=== PATIENT | female | born 1965 | race Caucasian/White ===

== ENCOUNTER 2023-03-27 11:00 | Observation (INO) ==
--- NOTE | 2023-03-27 11:18 | Emergency Department Note ---
Impression & Plan Syncope, Chest pain ED Provider Note NAME: YANNA LEO AGE: 57 SEX: F : 1965 ARRIVES VIA: Walk-In INFORMANT: Patient, ED PROVIDER(S): Davi Lynch MD CHIEF COMPLAINT: Outpatient referral, "blackouts" MEDICAL DECISION MAKING: Patient presents due to concern for syncope. IV was established blood work was obtained. EKG without signs of obvious arrhythmia. Patient has a normal white count mild elevation hemoglobin is 16.1 with a normal platelet count. Kidney function unremarkable with. No azotemia. Electrolytes are grossly unremarkable with negative troponin. I did speak the on-call hospitalist given the patient's reported multiple episodes of syncope daily for the last 3 weeks as well as ongoing chronicity. Patient will be admitted to the medicine service. Discussion w/ other healthcare providers: Dr. Torres inpatient medicine service Prior /Outside records reviewed: I did review a primary care visit from Kayla Garcia [employer] was seen due to concern for syncope palpitations. Patient was referred here for further evaluation and treatment given the frequency of her syncopal events. Differential diagnosis: Vasovagal event, dehydration, infection, hypoglycemia, electrolyte abnormalities, arrhythmia, pulmonary embolism, seizure among others were considered. Diagnostics, as interpreted by me: ECG: Normal sinus rhythm, rate of 63, normal intervals, normal axis ST elevations. No T WI. Cardiac monitoring: An order was placed for continuous cardiac monitoring. The monitor shows a rate of 65 with sinus rhythm. Patient was placed on pulse oximetry Medical decision rules: None Imaging studies: I informally interpreted the patient's chest x-ray which does not show obvious pneumonia or pneumothorax with formal report to follow. HPI: Patient presents as an outpatient referral due to concern for episodes of blacking out. When discussing the patient does not have memory loss but has syncope. This been ongoing for over a year but seems to be more persistent symptoms will happen up to 2 times daily. Patient denies any shortness of breath but has had some right-sided chest discomfort nonradiating. No exertional symptoms no prior history of any heart or lung disease patient states that it may be present in her family. No alcohol or tobacco use. Patient denies any leg swelling or calf pain no history of DVT or PE. No recent surgeries procedures or hospitalizations. Patient is currently on steroids for history of disc disease. PAST MEDICAL HISTORY: See Below PAST SURGICAL HISTORY: See Below SOCIAL HISTORY: See Below HOME MEDICATIONS: See Below ALLERGIES: See Below VITALS: See Below PHYSICAL EXAMINATION: GENERAL: NAD, non-toxic. EYE EXAM: Normal conjunctiva. PERRL, no anisocoria and EOM's grossly intact w/o pain. OROPHARYNX: Moist mucus membranes, grossly normal dentition. NECK: Supple, no nuchal rigidity, no adenopathy, non-tender. No signs of meningismus. FROM of the neck with good chin to chest and neck extension. No stridor. LUNGS: Clear to auscultation. Normal chest wall mechanics. HEART: NSR, no MRG. ABDOMEN: Abdomen soft, non-tender, no masses, no rebound or guarding. BACK: No CVA TTP. SKIN: No rashes and no bruising. UPPER EXTREMITIES: Upper extremities are grossly normal. LOWER EXTREMITIES: Grossly normal, no edema. NEURO EXAM: A&O x3, cranial nerves II-XII grossly intact, normal speech, moves all 4 extremities. Past Med/Surg History Medical History Lumbar pain No significant past medical history Cellulitis of left hand Dehydration Surgical History S/P tubal ligation essure in 2014 H/O shoulder surgery H/O wisdom tooth extraction Family History Other Myocardial infarction Stroke Denies family history of Breast cancer Colorectal cancer Social History Smoking Status: Current every day smoker Tobacco Type: Cigarettes Second Hand Exposure: Yes; Do You Dip or Chew Tobacco: No; Hx Alcohol Use: No Hx Substance Use: No Preferred Language: Haitian Communication Ability: Effective Material Scheduler Required: No Beliefs That Will Affect Care: None marital status: Current Living Situation: Spouse current occupational status: employed and unemployed 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 [employer] How many Children do You have: 4 Feels Safe at Home: Yes Assistive Devices: None Allergies Allergies Allergy/AdvReac Type Severity Reaction Status Date / Time aspirin Allergy Intermediate Rash Verified 03/27/23 10:03 Penicillins Allergy Intermediate rash Verified 03/27/23 10:03 clindamycin AdvReac Intermediate FELT LIKE Verified 03/27/23 10:03 HEART WAS POUNDING OUT OF CHEST doxycycline AdvReac Intermediate Vomiting Verified 03/27/23 10:03 Home Meds Home Medications Medication Instructions Recorded Confirmed oxybutynin chloride 5 mg 5 mg PO QAM 03/27/23 03/27/23 tablet,extended release 24 hr Previous Rx's Medication Instructions Recorded methylprednisolone 4 mg tablets in See Rx Instructions .Route 09/28/22 a dose pack (Medrol (Dheeraj)) .COMPLEX #21 ea citalopram 20 mg tablet 20 mg PO QAM #30 tabs 11/02/22 acetaminophen 325 mg tablet 650 mg (2 x 325 mg) PO TID #120 03/28/23 tabs pantoprazole 40 mg tablet,delayed 40 mg PO DAILY 4 weeks #28 tabs 03/28/23 release sucralfate 1 gram tablet 1 g PO ACHS 4 weeks #28 tabs 03/28/23 Results & Data (ED) Vital Signs Vital Signs - 24 hr 03/27/23 11:06 03/27/23 11:23 Temperature 36.9 C Temperature Source Temporal Artery Scan Pulse Rate 66 60 Respiratory Rate 20 Respiratory Effort / Characteristics Non-Labored Respiratory Depth Normal Blood Pressure 125/79 Blood Pressure Mean 94 Pulse Oximetry 96 Oxygen Delivery Method Room Air Sepsis Recent Fever Within 48 Hours No Sepsis New/Unexplained Change in Mental Status No Sepsis Action Taken by Nursing No Action Required Home Medications Current Medication List: was personally reviewed by me Laboratory Data Attestation: I reviewed the patient's lab results. 03/28/23 05:44 03/28/23 05:44 Lab Results 03/27/23 03/27/23 Range/Units 11:20 11:27 WBC 10.36 (4.8-10.8) K/ul RBC 5.15 (4.20-5.40) M/uL Hgb 16.1 H (12.0-16.0) g/dl Hct 47.9 H (37.0-47.0) % MCV 93.0 (80.0-100.0) fL MCH 31.3 (25.0-34.0) pg MCHC 33.6 (32.0-36.0) g/dL RDW Std Deviation 44.5 (36.4-46.3) fL RDW Coeff of Lindy 13.0 (11.5-14.5) % Plt Count 317 (130-400) K/uL MPV 8.9 L (9.4-12.4) fL Immature Gran % (Auto) 0.4 % Neut % (Auto) 64.1 % Lymph % (Auto) 29.2 % [place] % (Auto) 5.4 % Eos % (Auto) 0.5 % Baso % (Auto) 0.4 % Neut # (Auto) 6.65 H (1.40-6.50) K/uL Lymph # (Auto) 3.02 (1.20-3.40) K/uL [place] # (Auto) 0.56 (0.11-0.59) K/uL Eos # (Auto) 0.05 (0.00-0.50) K/uL Baso # (Auto) 0.04 (0.00-0.20) K/uL Immature Gran # (Auto) 0.04 (0.01-0.20) K/uL Sodium 138 (136-145) mmol/L Potassium 4.2 (3.5-5.1) mmol/L Chloride 104 (98-107) mmol/L Carbon Dioxide 28 (21-32) mmol/L Anion Gap 6 (3-11) BUN 16 (6-23) mg/dl Creatinine 0.73 (0.6-1.2) mg/dl Est Cr Clr Drug Dosing 82.7 ml/min Est GFR ( Amer) 105.2 ml/min Est GFR (Non-Af Amer) 90.8 ml/min BUN/Creatinine Ratio 21.9 H (10-20) Glucose 85 (70-99(Fasting)) mg/dl Calcium 10.2 (8.6-10.3) mg/dl Magnesium 2.3 (1.7-2.4) mg/dl Total Bilirubin 0.4 (0.2-1.0) mg/dl AST 12 L (13-39) U/L ALT 13 (7-52) U/L Alkaline Phosphatase 96 (34-104) U/L Troponin I High Sens < 2.3 (0-14) pg/ml Total Protein 7.6 (6.0-8.3) gm/dl Albumin 4.7 (3.4-5.0) gm/dl Globulin 2.9 (2.5-4.0) gm/dl Albumin/Globulin Ratio 1.6 (0.9-2) Lipase 28 (11-82) U/L TSH 0.925 (0.300-4.500) uIu/ml Salicylates < 3.0 L (3.0-30) mg/dl Acetaminophen < 3 L (10-30) ug/ml Ethyl Alcohol mg/dL < 10.0 (<10.0) mg/dl Lyme Disease IgG Ab Negative (Negative) Lyme Disease IgM Ab Negative (Negative) Administered Medications Citalopram Hydrobromide (Citalopram 20 Mg Tab) 20 mg PO [facility] Stop: 04/27/23 08:59 Last Admin: 03/28/23 09:44 Dose: 20 mg Documented By: TLM Miscellaneous (Remove Nicoderm Patch) 1 each N/A DAILY@0859 [facility] Stop: 04/27/23 08:58 Last Admin: 03/28/23 10:42 Dose: Not Given Documented By: TLLorna Nicotine (Nicotine 21 Mg/24 Hr Tdsy) 21 mg TD [facility] Stop: 04/26/23 16:59 Last Admin: 03/28/23 09:44 Dose: 21 mg Documented By: Admin: 03/27/23 18:16 Dose: 21 mg Documented By: QGV Oxybutynin Chloride (Oxybutynin Chloride Xl 5 Mg Tabcr) 5 mg PO [facility] Stop: 04/27/23 08:59 Last Admin: 03/28/23 09:44 Dose: 5 mg Documented By: TLM Discontinued Medications Nicotine Polacrilex (Nicotine Polacrilex 2 Mg Gum) [address] [facility] Stop: 03/27/23 16:39 Last Admin: 03/27/23 16:53 Dose: 1 piece Documented By: QGV Imaging Data Radiologist's Impression: Chest X-Ray 03/27/23 11:18 XR chest 1V portable HISTORY: Chest pain, nonspecific COMPARISON: Chest 09/16/2022. FINDINGS: No pneumothorax. No pleural effusions. The heart is normal in size. No evidence for pulmonary edema. No new focal lung consolidations to suggest a pneumonia. No evidence for edema. No acute fractures identified. Stable calcified granuloma within the right lower lobe. IMPRESSION: No significant change compared to the prior study. No acute process. ACT 112: Negative or not required by law. Electronically signed by: Manjinder Vila M.D. 03/27/2023 12:30 PM Discharge Plan Visit Data Chief Complaint: Referred by Doctor Stated Complaint: DRLester SENT OVER FOR CARDIAC ASSESSMENT ED Provider: Davi Lynch Discharge Problem: Syncope, Chest pain Patient Disposition: Admitted As Inpatient Discharge Instructions Interventions: ED Discharge Assessment Last Done: 03/27/23 21:54 Discharge Problem: Syncope Qualifiers: Syncope type: unspecified Qualified Code(s): R55 - Syncope and collapse Chest pain Qualifiers: Chest pain type: unspecified Qualified Code(s): R07.9 - Chest pain, unspecified
[2023-03-27 11:42] LABS: Basophils # (auto) 0.04 K/uL (0.00-0.20); Basophils % (auto) 0.4 %; Eosinophils # (auto) 0.05 K/uL (0.00-0.50); Eosinophils % (auto) 0.5 %; Hematocrit (blood only) 47.9 % (37.0-47.0); Hemoglobin 16.1 g/dl (12.0-16.0); Immature Granulocytes # (auto) 0.04 K/uL (0.01-0.20); Immature Granulocytes % (auto) 0.4 %; Lymphocytes # (auto) 3.02 K/uL (1.20-3.40); Lymphocytes % (auto) 29.2 %; Mean Corpuscular Hemoglobin 31.3 pg (25.0-34.0); Mean Corpuscular Hgb Conc 33.6 g/dL (32.0-36.0); Mean Platelet Volume 8.9 fL (9.4-12.4); Monocytes # (auto) 0.56 K/uL (0.11-0.59); Monocytes % (auto) 5.4 %; Neutrophils # (auto) 6.65 K/uL (1.40-6.50); Neutrophils % (auto) 64.1 %; Platelet Count 317 K/uL (130-400); RDW Standard Deviation 44.5 fL (36.4-46.3); Red Blood Count 5.15 M/uL (4.20-5.40); White Blood Count 10.36 K/ul (4.8-10.8)
[2023-03-27 11:58] LABS: Acetaminophen < 3 ug/ml (10-30); Salicylate < 3.0 mg/dl (3.0-30)
[2023-03-27 11:59] LABS: Alanine Aminotransferase 13 U/L (7-52); Albumin Globulin Ratio 1.6 (0.9-2); Albumin Level 4.7 gm/dl (3.4-5.0); Alkaline Phosphatase 96 U/L (34-104); Anion Gap 6 (3-11); Aspartate Aminotransferase 12 U/L (13-39); BUN Creatinine Ratio 21.9 (10-20); Bilirubin,Total 0.4 mg/dl (0.2-1.0); Blood Urea Nitrogen 16 mg/dl (6-23); Calcium 10.2 mg/dl (8.6-10.3); Carbon Dioxide 28 mmol/L (21-32); Chloride 104 mmol/L (98-107); Creatinine Clr Calc Pharmacy 82.7 ml/min; Est GFR (African American) 105.2 ml/min; Est GFR (Non-African American) 90.8 ml/min; Globulin 2.9 gm/dl (2.5-4.0); Glucose 85 mg/dl (70-99(Fasting)); Lipase 28 U/L (11-82); Potassium 4.2 mmol/L (3.5-5.1); Sodium 138 mmol/L (136-145); Total Protein 7.6 gm/dl (6.0-8.3)
[2023-03-27 12:05] LABS: Troponin I High Sensitivity < 2.3 pg/ml (0-14)
--- NOTE | 2023-03-27 12:31 | XRay Report ---
XR chest 1V portable HISTORY: Chest pain, nonspecific COMPARISON: Chest 09/16/2022. FINDINGS: No pneumothorax. No pleural effusions. The heart is normal in size. No evidence for pulmona ry edema. No new focal lung consolidations to suggest a pneumonia. No evidence for edema. No acute fr actures identified. Stable calcified granuloma within the right lower lobe. IMPRESSION: No significant change compared to the prior study. No acute process. ACT 112: Negative or not required by law. Electronically signed by: Manjinder Vila M.D. 03/27/2023 12:30 PM
--- NOTE | 2023-03-27 14:10 | History & Physical Report ---
Date of Service March 27, 2023 Assessment & Plan (1) Syncope: Plan: Multiple unwitnessed syncopal episodes over the past several weeks, with the last being Saturday 03/24 Prodromal symptoms of chest palpitations, dizziness prior to passing out; patient lies down on the ground and then passes out for an unknown amount of time Last witnessed syncopal episode was March 2022; patient's daughter found her passed out after ~15min No hx of seizures or stroke No recent head trauma or injuries EKG NSR at 63 bpm; QTc 399 Troponin WNL CXR NAF Salicylates, acetaminophen, and ethyl alcohol levels WNL Continuous telemetry monitoring TSH WNL at 0.925 Lyme negative Echo ordered, pending Hold Advil PM (diphenhydramine); melatonin as needed for sleep AM CBC, BMP (2) Anxiety: Plan: It should be noted that patient has been under increased stress over the past year; ?Panic attacks Patient endorses history of panic attacks, but reports that it never felt like this in the past Patient denies suicidal ideations, or thoughts of self-harm Continue citalopram Consider additional resources at time of discharge to assist with home stress management (3) Chest pain: Plan: Not present at time of admission; longstanding; intermittent; radiates to right scapula; no radiation to left jaw/shoulder/arm She reports it feels similar to her past episodes of gastric ulcers, however it is now "higher up" Troponin WNL EKG NSR Continuous telemetry monitoring Nitroglycerin 0.4 mg SL q5m as needed for chest pain Recommend outpatient follow-up with Holter monitor (4) Lumbar spinal stenosis: Plan: Patient endorses chronic lower back pain She was post to have an injection at [facility] Of note, she has been taking methylprednisolone since 03/23 to help with pain; hold for now Acetaminophen 650 mg p.o. q4h as needed for pain (5) Smoker: Plan: Everyday tobacco cigarette smoker; 1.5 PPD Nicotine patches as needed (6) Urge and stress incontinence: Plan: Continue oxybutynin Plan Disposition: Obs -admit to [facility] telemetry Full code Regular diet VTE PPx: SCDs History of Present Illness Primary Care Provider: Mahesh Fenton MD [facility] is a 57-year-old female with PMH of anxiety, urge and stress incontinence, lumbar spinal stenosis, and radicular pain in both lower extremities. She presented for recurrent syncopal episodes over the past week, and worsening stress levels over the past year. Patient's significant other (Lefty) is present at the bedside and provides additional history. The patient reports that her first episode of syncope occurred last year at [facility] 2021; it was witnessed by her daughter (Melissa), and she was passed out for approximately 15 minutes. She reports that she had a bad episode of chest palpitations and dizziness and laid down on the floor on 03/23, and then passed out for an unknown amount of time; this was unwitnessed. She then had a mild episode on Saturday 03/24. She reports prodromal symptoms of dizziness and chest palpitations prior to passing out, and reports that she always is able to lie on the floor first. She does not know how long she is down for. She denies history of seizures or strokes. She reports that she has an chest pain that shoots to her right scapula; unsure how frequently. She notes that she has had ulcers in the past, and that her current intermittent pain feels like ulcers except "higher up". 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 She reports history of panic attacks, but none that felt like this. She also has chronic pain due to a herniated disc, and recently started on methylprednisolone 2 weeks ago for the pain. Patient is a current everyday cigarette smoker; 1.5 PPD. No recent injuries to the head or neck. No sick contacts. She reports she took her normal daily medications. Mild hypertension at 149/87 at time of admission. ED course: ROS: Patient endorses worsening fatigue that started 2 weeks ago, cold intolerance, intermittent chest palpitations, intermittent chest pain, and numbness and tingling down in hands. Patient denies fever, sweating, ART, pleuritic CP, SOB, abdominal pain, N/V/D, or numbness/tingling in arms, shoulder, jaw, or down legs. Allergies Allergy/AdvReac Type Severity Reaction Status Date / Time aspirin Allergy Intermediate Rash Verified 03/27/23 10:03 Penicillins Allergy Intermediate rash Verified 03/27/23 10:03 clindamycin AdvReac Intermediate FELT LIKE Verified 03/27/23 10:03 HEART WAS POUNDING OUT OF CHEST doxycycline AdvReac Intermediate Vomiting Verified 03/27/23 10:03 Home Medications Medication Instructions Recorded Confirmed Type ibuprofen-diphenhydramine citrate 1 cap PO HS PRN Sleep 08/02/20 03/27/23 History 200 mg-38 mg tablet (Advil PM) naproxen sodium 220 mg tablet 220 mg PO DAILY PRN Pain 09/16/22 03/27/23 History (Aleve) methylprednisolone 4 mg tablets in See Rx Instructions .Route 09/28/22 03/27/23 Rx a dose pack (Medrol (Dheeraj)) .COMPLEX #21 ea citalopram 20 mg tablet 20 mg PO QAM #30 tabs 11/02/22 03/27/23 Rx oxybutynin chloride 5 mg 5 mg PO QAM 03/27/23 03/27/23 History tablet,extended release 24 hr Past Med/Surg History Medical History (Updated 03/27/23 @ 14:09 by Manjinder Mcnally PA-C) Lumbar pain No significant past medical history Cellulitis of left hand Dehydration Surgical History S/P tubal ligation essure in 2014 H/O shoulder surgery H/O wisdom tooth extraction Family History Other Myocardial infarction Stroke Denies family history of Breast cancer Colorectal cancer Social History (Updated 09/21/22 @ 13:07 by YOLY Rothman) Smoking Status: Current every day smoker Tobacco Type: Cigarettes Second Hand Exposure: Yes; Do You Dip or Chew Tobacco: No; Hx Alcohol Use: No Hx Substance Use: No Preferred Language: French Communication Ability: Effective Head Of Music Required: No Beliefs That Will Affect Care: None marital status: Current Living Situation: Spouse current occupational status: employed and unemployed 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 How many Children do You have: 4 Other Information That Helps Us Care for You: No Feels Safe at Home: Yes Safety Concerns: Feels Safe At This Time Assistive Devices: None Review of Systems Review of Systems: See HPI above Physical Exam Physical Exam: General: Patient appears in acute emotional distress d/t life stressors; face flushed; non-toxic appearing; cooperative HEENT: normocephalic, atraumatic; no scleral icterus; PERRLA w/ EOMs intact; moist mucus membrane; vision and hearing grossly intact; mild lid lag b/l Neck: supple; no lymphadenopathy; trachea midline Skin: warm, erythematous around the neck, dry without signs of tenting; no cyanosis; no rashes, bruising, lesions, or erythema noted CV: chest wall NTP; RRR; S1/S2 normal; no murmurs/rubs/gallops; pulses intact and symmetric at radial, DP, and PT Lungs: no acute respiratory distress; symmetrical chest wall expansion; clear breath sounds across all lung lui w/o adventitious sounds; no wheezing ABD: Soft, NTP; BS present; no rebound/guarding; no ascites; no distention; negative CVA tenderness MSK: no tics or fasciculations; no edema noted in the LEs b/l Neuro: A&Ox3; normal mood and affect; fluent speech; no focal deficits; sensation grossly intact in LEs B/L Results & Data Results & Data Vital Signs (Past 12 Hours) Vital Signs Temp Pulse Pulse Resp BP BP Pulse Ox 03/27/23 13:01 36.7 C 62 16 149/87 H 97 03/27/23 11:23 60 03/27/23 11:06 36.9 C 66 20 125/79 96 O2 Del Method 03/27/23 13:01 Room Air 03/27/23 11:23 03/27/23 11:06 Room Air Laboratory Results Abnormal lab results 03/27/23 Range/Units 11:20 Hgb 16.1 H (12.0-16.0) g/dl Hct 47.9 H (37.0-47.0) % MPV 8.9 L (9.4-12.4) fL Neut # (Auto) 6.65 H (1.40-6.50) K/uL BUN/Creatinine Ratio 21.9 H (10-20) AST 12 L (13-39) U/L Salicylates < 3.0 L (3.0-30) mg/dl Acetaminophen < 3 L (10-30) ug/ml Diagnostic Findings Chest X-Ray 03/27/23 11:18 XR chest 1V portable HISTORY: Chest pain, nonspecific COMPARISON: Chest 09/16/2022. FINDINGS: No pneumothorax. No pleural effusions. The heart is normal in size. No evidence for pulmonary edema. No new focal lung consolidations to suggest a pneumonia. No evidence for edema. No acute fractures identified. Stable calcified granuloma within the right lower lobe. IMPRESSION: No significant change compared to the prior study. No acute process. ACT 112: Negative or not required by law. Electronically signed by: Manjinder Vila M.D. 03/27/2023 12:30 PM Code Status & VTE Plan Code Status Full code VTE Prophylaxis Plan VTE Prophylaxis will be ordered: Yes Supervising Physician Co-Signing Physician Notes I personally saw and examined the patient. I independently reviewed the labs, EKG, imaging, problem list, medication list, past medical history and family history. I verified all dunne points and agree with Manjinder Mcnally PA-C with the following exceptions and/or additions: 57 year old female presents to the ER with multiple syncopal episodes occurring twice a day. She reports these happen following a whaley of blood to her head. Can occur at any time. Occasional feels like she is going down but generally she wakes up on the floor after full loss of consciousness. She reports feeling a bit lightheaded at one point in the emergency room on the monitor but no episode like she has been having at home. O/E A&Ox3, appears anxious, HS RRR, no murmurs, Chest CTAB, Abdo SNT, no CVA tenderness, no unilateral weakness, no facial droop A/P Syncope - most likely related to her high stress and anxiety causing chest pains and vagal reactions however more concerning would be us missing an arrhythmia and given this is occurring twice a day hopefully we can capture one on telemetry. If no arrhythmia on telemetry overnight and TTE normal suspect she can be discharged tomorrow. If she does not have an event however recommend outpatient monitor. Less consistent with absence seizures as she reports waking up the ground after most of them although unusual she has never hurt herself given this is happening twice a day and never witnessed by her . PG Care Time/CCT Total # of Minutes Spent Total Time Spent with Patient: Total time spent is greater than 50% in coordination of care (as documented) at patient's floor/unit and/or counseling patient: Coding [place] [address] INT INP/OBS CARE 2/55MIN Patient Type Established Medical Decision Making Moderate Complexity Diagnoses Syncope R55 Anxiety F41.9 Chest pain R07.89; R07.8 Chest pain type: other chest pain Lumbar spinal stenosis M48.061 Smoker F17.200 Urge and stress incontinence N39.46 (3) Chest pain Chest pain type: other chest pain Qualified Code(s): R07.89 - Other chest pain; R07.8 - Other chest pain
[2023-03-27 15:32] LABS: Magnesium 2.3 mg/dl (1.7-2.4)
[2023-03-27] MEDS ORDERED: ACETAMINOPHEN 325 MG TAB PO PRN (15:36)
[2023-03-27] MEDS ORDERED: NITROGLYCERIN SL 0.4 MG/TAB TAB SL PRN (15:36)
[2023-03-27 15:48] LABS: Thyroid Stimulating Hormone 0.925 uIu/ml (0.300-4.500)
[2023-03-27 16:07] LABS: Lyme Ab IgG w/WB Rflx Negative (Negative); Lyme Ab IgM w/WB Rflx Negative (Negative)
[2023-03-27] MEDS ORDERED: NICOTINE POLACRILEX 2 MG GUM MT PRN (16:38)
[2023-03-27] MEDS ORDERED: NICOTINE POLACRILEX 2 MG GUM MT STA (16:38)
[2023-03-27] MEDS ORDERED: MELATONIN 3 MG TAB PO PRN (16:40)
[2023-03-27] MEDS: NICOTINE 21 MG/24 HR TDSY TD SCH (18:16)
[2023-03-27 18:31] LABS: Appearance Urine Clear (Clear); Bacteria Urine Automated Negative (Negative); Bilirubin Urine Negative (Negative); Blood Urine Negative (Negative); Color Urine Yellow; Glucose Urine UA Negative (Negative); Ketones Urine Negative (Negative); Leukocyte Esterase Urine 1+ (Negative); Nitrite Urine Negative (Negative); Protein Urine Negative (Negative); RBC Urine Automated 0-4 /hpf (0-4); Specific Gravity Urine 1.022 (1.000-1.030); Urobilinogen Urine Negative (Negative); pH Urine 5.5 (4.5-7.5)
[2023-03-27 18:47] LABS: Amphetamines+Metham, Urine Neg (Neg); Barbiturates, Urine Neg (Neg); Benzodiazepine, Urine Neg (Neg); Cocaine, Urine Neg (Neg); MDMA (Ecstacy), Urine Neg (Neg); Marijuana, Urine Neg (Neg); Methadone, Urine Neg (Neg); Opiate, Urine Neg (Neg); Phencyclidine, Urine Neg (Neg)
[2023-03-28 06:32] LABS: Hematocrit (blood only) 45.9 % (37.0-47.0); Hemoglobin 15.6 g/dl (12.0-16.0); Mean Corpuscular Hemoglobin 31.3 pg (25.0-34.0); Mean Platelet Volume 8.9 fL (9.4-12.4); Platelet Count 259 K/uL (130-400); RDW Coefficient of Variation 12.8 % (11.5-14.5); RDW Standard Deviation 43.1 fL (36.4-46.3); Red Blood Count 4.99 M/uL (4.20-5.40); White Blood Count 8.14 K/ul (4.8-10.8)
[2023-03-28 06:47] LABS: BUN Creatinine Ratio 26.3 (10-20); Calcium 9.6 mg/dl (8.6-10.3); Creatinine Clr Calc Pharmacy 79.5 ml/min; Est GFR (African American) 100.2 ml/min; Est GFR (Non-African American) 86.5 ml/min
[2023-03-28 07:13] LABS: Basophils # (auto) 0.06 K/uL (0.00-0.20); Basophils % (auto) 0.7 %; Eosinophils # (auto) 0.29 K/uL (0.00-0.50); Eosinophils % (auto) 3.6 %; Immature Granulocytes # (auto) 0.03 K/uL (0.01-0.20); Immature Granulocytes % (auto) 0.4 %; Lymphocytes # (auto) 4.76 K/uL (1.20-3.40); Lymphocytes % (auto) 58.5 %; Monocytes # (auto) 0.48 K/uL (0.11-0.59); Monocytes % (auto) 5.9 %; Neutrophils # (auto) 2.52 K/uL (1.40-6.50); Neutrophils % (auto) 30.9 %; Polychromasia 1+
[2023-03-28] MEDS ORDERED: CITALOPRAM 20 MG TAB PO SCH (09:00)
[2023-03-28] MEDS ORDERED: OXYBUTYNIN CHLORIDE XL 5 MG TABCR PO SCH (09:00)
[2023-03-28] MEDS: NICOTINE 21 MG/24 HR TDSY TD SCH (09:44)
--- NOTE | 2023-03-28 10:40 | Neurology Consultation ---
Date of Consultation March 28, 2023 Assessment & Plan (1) Syncope: History of Present Illness Attending Physician: Demarcus Hernandez History of Present Illness HPI: pt with more than 6 yrs of hx of having episodic fainting, always with upper epigastric area pain and radiating to the back and she would faint for seconds and wake up. she usually feels also palpatations and dizzy briefly. no taste change or abnormal movements or any headache associated. pt this morning is not happy that she is now admitted as she knows this is her routine and does not need hospital stay. she does admit to having stress. admission HPI: Meaghan is a 57-year-old female with PMH of anxiety, urge and stress incontinence, lumbar spinal stenosis, and radicular pain in both lower extremities. She presented for recurrent syncopal episodes over the past week, and worsening stress levels over the past year. Patient's significant other (Lefty) is present at the bedside and provides additional history. The patient reports that her first episode of syncope occurred last year at [place] time 2021; it was witnessed by her daughter (Melissa), and she was passed out for approximately 15 minutes. She reports that she had a bad episode of chest palpitations and dizziness and laid down on the floor on 03/23, and then passed out for an unknown amount of time; this was unwitnessed. She then had a mild episode on Saturday 03/24. She reports prodromal symptoms of dizziness and chest palpitations prior to passing out, and reports that she always is able to lie on the floor first. She does not know how long she is down for. She denies history of seizures or strokes. She reports that she has an chest pain that shoots to her right scapula; unsure how frequently. She notes that she has had ulcers in the past, and that her current intermittent pain feels like ulcers except "higher up". 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 She reports history of panic attacks, but none that felt like this. She also has chronic pain due to a herniated disc, and recently started on methylprednisolone 2 weeks ago for the pain. Patient is a current everyday cigarette smoker; 1.5 PPD. No recent injuries to the head or neck. No sick contacts. She reports she took her normal daily medications. Mild hypertension at 149/87 at time of admission. Allergies Allergy/AdvReac Type Severity Reaction Status Date / Time aspirin Allergy Intermediate Rash Verified 03/27/23 10:03 Penicillins Allergy Intermediate rash Verified 03/27/23 10:03 clindamycin AdvReac Intermediate FELT LIKE Verified 03/27/23 10:03 HEART WAS POUNDING OUT OF CHEST doxycycline AdvReac Intermediate Vomiting Verified 03/27/23 10:03 Home Medications Medication Instructions Recorded Confirmed Type ibuprofen-diphenhydramine citrate 1 cap PO HS PRN Sleep 08/02/20 03/27/23 History 200 mg-38 mg tablet (Advil PM) naproxen sodium 220 mg tablet 220 mg PO DAILY PRN Pain 09/16/22 03/27/23 History (Aleve) methylprednisolone 4 mg tablets in See Rx Instructions .Route 09/28/22 03/27/23 Rx a dose pack (Medrol (Dheeraj)) .COMPLEX #21 ea citalopram 20 mg tablet 20 mg PO QAM #30 tabs 11/02/22 03/27/23 Rx oxybutynin chloride 5 mg 5 mg PO QAM 03/27/23 03/27/23 History tablet,extended release 24 hr Patient History Medical History (Updated 03/28/23 @ 10:46 by Gagan Mulligan MD) Lumbar pain No significant past medical history Cellulitis of left hand Dehydration Surgical History S/P tubal ligation essure in 2014 H/O shoulder surgery H/O wisdom tooth extraction Family History Other Myocardial infarction Stroke Denies family history of Breast cancer Colorectal cancer Social History (Updated 09/21/22 @ 13:07 by YOLY Rothman) Smoking Status: Current every day smoker Tobacco Type: Cigarettes Second Hand Exposure: Yes; Do You Dip or Chew Tobacco: No; Hx Alcohol Use: No Hx Substance Use: No Preferred Language: Yoruba Communication Ability: Effective Invas Tech Required: No Beliefs That Will Affect Care: None marital status: Current Living Situation: Spouse current occupational status: employed and unemployed current occupation: [employer] How many Children do You have: 4 Other Information That Helps Us Care for You: No Feels Safe at Home: Yes Safety Concerns: Feels Safe At This Time Assistive Devices: None Exam (Neuro) Physical Exam: HEENT: normocephalic Neuro: Mental: AOx4, fluent speech, normal comprehension, no apraxia, no L/R confusion, no neglect CN: PERRL, Full EOM, symmetric face, intact sensation t/o face, midline T/U/P, 5/5 SCM/traps. Motor: No abnormal movements, normal tone and bulk, 5/5 t/o bilaterally Sens: intact to touch b/l grossly Coord: intact DTR: 2+ sym b/l Impression: 57 yo female with chronic hx of episodic transient fainting events triggered by epigastric pain. Overall does not appears to be neurologic in nature and not concern for seizure or vascular event. consideration for Visceral/GI pain triggered vaso-vagal events. unclear how much stress/psychological component. Recommendations: no work up needed from neurology stand point. do recommend work up for GI pain/epigastric pain as it is the main triggers for the events. avoid sudden position change. no need for EEG call again if new quesetion please. Chart reviewed I have spent more than 50% educating patient about potential diagnosis and neurological evaluation and coordinating care with patient's treatment team. Total time spent (including chart review and coordination of care): 60 min (this includes chart review). Results & Data Vital Signs (Past 12 Hours) Vital Signs Temp Pulse Pulse Pulse Resp BP Pulse Ox 03/28/23 07:44 36.7 C 66 16 113/74 96 03/28/23 07:21 68 03/28/23 04:00 36.6 C 64 18 119/70 95 O2 Del Method 03/28/23 07:44 Room Air 03/28/23 07:21 03/28/23 04:00 Room Air PG Care Time/CCT Total # of Minutes Spent Total Time Spent with Patient: Total time spent is greater than 50% in coordination of care (as documented) at patient's floor/unit and/or counseling patient: Coding Level of Care Code 63753 IN/OBS CONSULT LVL 4,60M Diagnoses Syncope, unspecified syncope type R55 Syncope type: unspecified (1) Syncope Syncope type: unspecified Qualified Code(s): R55 - Syncope and collapse
--- NOTE | 2023-03-28 14:07 | Discharge Summary ---
Date of Service March 28, 2023 Admission HPI Per Admitting Provider Meaghan is a 57-year-old female with PMH of anxiety, urge and stress incontinence, lumbar spinal stenosis, and radicular pain in both lower extremities. She presented for recurrent syncopal episodes over the past week, and worsening stress levels over the past year. Patient's significant other (Lefty) is present at the bedside and provides additional history. The patient reports that her first episode of syncope occurred last year at [place] time 2021; it was witnessed by her daughter (Melissa), and she was passed out for approximately 15 minutes. She reports that she had a bad episode of chest palpitations and dizziness and laid down on the floor on 03/23, and then passed out for an unknown amount of time; this was unwitnessed. She then had a mild episode on Saturday 03/24. She reports prodromal symptoms of dizziness and chest palpitations prior to passing out, and reports that she always is able to lie on the floor first. She does not know how long she is down for. She denies history of seizures or strokes. She reports that she has an chest pain that shoots to her right scapula; unsure how frequently. She notes that she has had ulcers in the past, and that her current intermittent pain feels like ulcers except "higher up". 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 She reports history of panic attacks, but none that felt like this. She also has chronic pain due to a herniated disc, and recently started on methylprednisolone 2 weeks ago for the pain. Patient is a current everyday cigarette smoker; 1.5 PPD. No recent injuries to the head or neck. No sick contacts. She reports she took her normal daily medications. Mild hypertension at 149/87 at time of admission. ED course: ROS: Patient endorses worsening fatigue that started 2 weeks ago, cold intolerance, intermittent chest palpitations, intermittent chest pain, and numbness and tingling down in hands. Patient denies fever, sweating, ART, pleuritic CP, SOB, abdominal pain, N/V/D, or numbness/tingling in arms, shoulder, jaw, or down legs. Discharge Data Allergies Allergy/AdvReac Type Severity Reaction Status Date / Time aspirin Allergy Intermediate Rash Verified 03/27/23 10:03 Penicillins Allergy Intermediate rash Verified 03/27/23 10:03 clindamycin AdvReac Intermediate FELT LIKE Verified 03/27/23 10:03 HEART WAS POUNDING OUT OF CHEST doxycycline AdvReac Intermediate Vomiting Verified 03/27/23 10:03 Consultations 03/27/23 13:47 ED Decision to Admit Stat 03/28/23 10:14 Consult Neurology Routine Hospital Course (1) Syncope: Multiple unwitnessed syncopal episodes over the past several weeks, with the last being Saturday 03/24 Prodromal symptoms of chest palpitations, dizziness prior to passing out; patient lies down on the ground and then passes out for an unknown amount of time Last witnessed syncopal episode was March 2022; patient's daughter found her passed out after ~15min No hx of seizures or stroke No recent head trauma or injuries EKG NSR at 63 bpm; QTc 399 Troponin WNL CXR NAF Salicylates, acetaminophen, and ethyl alcohol levels WNL Continuous telemetry monitoring TSH WNL at 0.925 [place] negative Echo ordered, pending Hold Advil PM (diphenhydramine); melatonin as needed for sleep AM CBC, BMP (2) Anxiety: It should be noted that patient has been under increased stress over the past year; ?Panic attacks Patient endorses history of panic attacks, but reports that it never felt like this in the past Patient denies suicidal ideations, or thoughts of self-harm Continue citalopram Consider additional resources at time of discharge to assist with home stress management (3) Chest pain: Not present at time of admission; longstanding; intermittent; radiates to right scapula; no radiation to left jaw/shoulder/arm She reports it feels similar to her past episodes of gastric ulcers, however it is now "higher up" Troponin WNL EKG NSR Continuous telemetry monitoring Nitroglycerin 0.4 mg SL q5m as needed for chest pain Recommend outpatient follow-up with Holter monitor (4) Lumbar spinal stenosis: Patient endorses chronic lower back pain She was post to have an injection at [facility] Of note, she has been taking methylprednisolone since 03/23 to help with pain; hold for now Acetaminophen 650 mg p.o. q4h as needed for pain (5) Smoker: Everyday tobacco cigarette smoker; 1.5 PPD Nicotine patches as needed (6) Urge and stress incontinence: Continue oxybutynin Plan Disposition: Obs -admit to [facility] telemetry Full code Regular diet VTE PPx: SCDs Discharge Plan Discharge Items Patient Disposition: Home - Self-Care Reason For Visit: SYNCOPAL EPISODES, STRESS Discharge Diagnosis: syncope Activity: Resume your previous activity Non-emergency contact: Primary Care Provider Call non-emergency contact if: you have any medication questions Follow-up/Referrals: Mahesh Fenton MD [Primary Care Provider] - 04/05/23 2:00 pm Diet: Regular Addtl Attending Provider Instructions: Will schedule followup with Cardiology. They will set you up with a heart monitor to see if we can explain why you have these episodes. Will also recommend a followup with PCP in 1-2 weeks. Recommend holding off Advil and Aleve as this may irritate your inner stomach lining. You can take tylenol as this doen't affect your stomach. Pending Studies at Discharge: No Stand-Alone Forms: My [facility], Smoking Cessation Medications and DC Order Prescriptions: New acetaminophen 325 mg Tablet 650 mg PO TID Qty: 120 0RF pantoprazole 40 mg tablet,delayed release (DR/EC) 40 mg PO DAILY 28 Days Qty: 28 0RF sucralfate 1 gram tablet 1 g PO ACHS 28 Days Qty: 28 0RF Continued citalopram 20 mg tablet 20 mg PO QAM Qty: 30 5RF methylprednisolone [Medrol (Dheeraj)] 4 mg tablets,dose pack See Rx Instructions .Route .COMPLEX Qty: 21 0RF Rx Instructions: Take per package directions; Start Date 03/23/23 - End Date 03/29/23 oxybutynin chloride 5 mg tablet extended release 24hr 5 mg PO QAM Discontinued naproxen sodium [Aleve] 220 mg Tablet 220 mg PO DAILY PRN (Reason: Pain) Advil PM 200-38 mg Tablet 1 cap PO HS PRN (Reason: Sleep) Discharge Orders: Discharge Order (Routine); Ordered 03/28/23 Ordered By: Demarcus Hernandez Admission Data Admit Date/Time: 03/27/23 15:01 Attending Provider: Demarcus Hernandez Admit Provider: Venu Torres Primary Care Provider: Mahesh Fenton Other Providers: Venu Torres; Chris Patterson; Leonel Sow; Petra Blackburn; Deisi Lieberman; Chloé Serna; Gagan Mulligan Coding Diagnoses Syncope, unspecified syncope type R55 Syncope type: unspecified Anxiety F41.9 Chest pain R07.89; R07.8 Chest pain type: other chest pain Lumbar spinal stenosis M48.061 Smoker F17.200 Urge and stress incontinence N39.46
--- NOTE | 2023-03-28 23:23 | XCELERA ---
[id number] [id number]
--- NOTE | 2023-03-29 21:50 | Electrocardiogram Report ---
Test Reason : Blood Pressure : / mmHG Vent. Rate : 063 BPM Atrial Rate : 063 BPM P-R Int : 186 ms QRS Dur : 074 ms QT Int : 390 ms P-R-T Axes : 071 060 066 degrees QTc Int : 399 ms Normal sinus rhythm Possible Left atrial enlargement Septal infarct , age undetermined Abnormal ECG When compared with ECG of 16-SEP-2022 14:31, Septal infarct is now Present Confirmed by Phillip Perdomo ([id number]) on 03/29/2023 9:50:46 PM Referred By: Kayla Mcgarry Confirmed By:Phillip Perdomo
== END 2023-03-28 14:59 | disposition home or self-care (01) ==
LOC: ED 11:00 → EDINP 11:00 → SUATTDRO 15:01 → 2N 21:54